=== PATIENT | male | born 1940 | race Caucasian/White ===

== ENCOUNTER 2024-10-20 17:12 | Emergency (ER) | payer OTHER ==
[~2024-10-20] VITALS: Ht 185.4 cm; Wt 84.1 kg
[2024-10-20] MEDS: TETANUS/DIPHTH/ACEL. PERTUSSIS 0.5 ML SYR IM ONE (17:53)
[2024-10-20 18:53] VITALS: BP 123/57; TEMP 98.3; O2SAT 97
== END 2024-10-20 18:54 | disposition home or self-care (01) ==
LOC: M ED 17:12 → EDBD 17:12 → M ED 18:54
DX: S00.83XA Contusion of other part of head, initial encounter (principal); S50.312A Abrasion of left elbow, initial encounter; Y92.9 Unspecified place or not applicable; Y93.9 Activity, unspecified; Y99.9 Unspecified external cause status; W01.0XXA Fall on same level from slipping, tripping and stumbling without subsequent striking against object, initial encounter; M47.812 Spondylosis without myelopathy or radiculopathy, cervical region; I48.91 Unspecified atrial fibrillation; I10 Essential (primary) hypertension; Z23 Encounter for immunization